=== PATIENT | female | born 1985 | race Asian ===

== ENCOUNTER → 2018-05-11 | Outpatient (CLI) | payer OTHER | END | disposition home or self-care (01) | LOC: EMPHLTH 11:38 | PROVIDERS: ATTEND Internal Medicine | DX: Z02.1 Encounter for pre-employment examination (principal) | CPT/HCPCS: 86706; 86735; 86762; 86765; 86787 ==

== ENCOUNTER 2018-09-27 07:24 | Emergency (ER) | payer OTHER ==
[~2018-09-27] VITALS: Ht 149.9 cm; Wt 90.5 kg
[2018-09-27 07:38] LABS: GLUCOSE,POINT OF CARE 172 MG/DL (70-110)
[2018-09-27 07:48] VITALS: BP 135/85
[2018-09-27] MEDS ORDERED: DiphenhydrAMINE HCL 25 MG CAPSULE PO ONE (08:15)
[2018-09-27] MEDS ORDERED: PredniSONE 20 MG TABLET PO ONE (08:15)
== END 2018-09-27 08:50 | disposition home or self-care (01) ==
LOC: EMS 07:24
DX: T78.40XA Allergy, unspecified, initial encounter (principal)
CPT/HCPCS: 82962; 99283; J7512